=== PATIENT | male | born 1975 | race Caucasian/White ===

== ENCOUNTER 2017-04-18 14:41 | Day surgery (SDC) | payer BC ==
[~2017-04-18] VITALS: Ht 172.7 cm; Wt 88.2 kg
[~2017-04-18 14:41] MED LIST: BUPR150T73 PO; EPINEPHRINE 1 MG/ML, 1ML ONE; LEVO125T5 PO; LIDOCAINE/PF 1%, 30ML ONE; LIOT5TAB3 PO; OMEP-110 PO; ROPIvacaine/PF 0.5%, 30 ML ONE; TRAZ50TA18 PO; TRAZADONE PO; [UNRECOGNIZED DRUG - OTHER] PO
[2017-04-18] MEDS ORDERED: LACTATED RINGERS 1,000 ML IV SCH (14:51)
[2017-04-18] MEDS ORDERED: FENTANYL PF 100 MCG/2ML ONE ×2 (15:14→16:24)
[2017-04-18] MEDS ORDERED: MIDAZOLAM 1 MG/ML, 2ML ONE (15:14)
[2017-04-18 15:17] VITALS: BP 121/79
[2017-04-18] MEDS ORDERED: PROPOFOL 10 MG/ML, 20ML ONE (15:45)
[2017-04-18] MEDS ORDERED: DEXAMETHASONE 4 MG/ML, 1ML ONE (15:45)
[2017-04-18] MEDS ORDERED: SUCCINYLCHOLINE 20 MG/ML, 10ML ONE (15:45)
[2017-04-18] MEDS ORDERED: ONDANSETRON 2MG/ML, 2ML ONE (15:45)
[2017-04-18] MEDS ORDERED: CEFAZOLIN 1,000 MG ONE (15:45)
[2017-04-18] MEDS ORDERED: PROMETHAZINE 25 MG/ML, 1ML IV PRN (16:00)
[2017-04-18] MEDS ORDERED: ONDANSETRON 2MG/ML, 2ML IVPush PRN (16:00)
[2017-04-18] MEDS ORDERED: hydrALAzine 20 MG/ML, 1ML IV PRN (16:00)
[2017-04-18] MEDS ORDERED: MEPERIDINE/PF 25MG/0.5ML IVPush PRN (16:00)
[2017-04-18] MEDS ORDERED: ACETAMINOPHEN 325 MG TABLET PO PRN (16:00)
[2017-04-18] MEDS ORDERED: METOCLOPRAMIDE 5 MG/ML, 2ML IV PRN (16:00)
[2017-04-18] MEDS ORDERED: OXYcodone 5 MG/5 ML ORAL.SOL UDC PO PRN (16:00)
[2017-04-18] MEDS ORDERED: ALBUTEROL SULFATE 2.5 MG/3 ML NPPB PRN (16:00)
[2017-04-18] MEDS ORDERED: METOPROLOL 1 MG/ML, 5ML IV PRN (16:00)
[2017-04-18] MEDS ORDERED: LABETALOL 5MG/ML, 20ML IV PRN (16:00)
[2017-04-18] MEDS ORDERED: KETOROLAC 30 MG/1 ML IV PRN (16:00)
[2017-04-18] MEDS ORDERED: EPHEDRINE 50 MG/ML, 1ML IVPush PRN (16:00)
[2017-04-18] MEDS ORDERED: MIDAZOLAM 1 MG/ML, 2ML IV PRN (16:00)
[2017-04-18] MEDS ORDERED: ACETAMINOPHEN 650 MG/20.3 ML UDC ONE (16:24)
[2017-04-18] MEDS ORDERED: OXYcodone 5 MG/5 ML ORAL.SOL UDC ONE (16:24)
[2017-04-18] MEDS: FENTANYL PF 100 MCG/2ML IV PRN ×2 (16:25→16:31)
[2017-04-18] MEDS ORDERED: HYDROmorphone 1 MG/ML, 1ML ONE ×2 (16:36→16:56)
[2017-04-18] MEDS: HYDROmorphone 1 MG/ML, 1ML IV PRN ×4 (16:37→17:06)
== END 2017-04-18 18:15 | disposition home or self-care (01) ==
LOC: OR 14:41
PROVIDERS: ATTEND Orthopaedic Surgery
DX: M79.4 Hypertrophy of (infrapatellar) fat pad (principal); M22.42 Chondromalacia patellae, left knee; M94.8X6 Other specified disorders of cartilage, lower leg; M65.862 Other synovitis and tenosynovitis, left lower leg; K21.9 Gastro-esophageal reflux disease without esophagitis; Z88.8 Allergy status to other drugs, medicaments and biological substances; Z98.890 Other specified postprocedural states; Z86.39 Personal history of other endocrine, nutritional and metabolic disease
CPT/HCPCS: 29875; J0171; J0330; J0690; J1100; J1170; J2250; J2405; J2704; J2795; J3010; J3490; J7120